=== PATIENT | male | born 1950 | race Caucasian/White ===

== ENCOUNTER → 2016-11-15 | Outpatient (CLI) | payer MEDICARE ==
[~2016-11-15] MED LIST: ALPRAZOLAM0.5 MG PO; ASPIRIN 81MG TA81 MG PO; BISOPROLOL 5MG T5 MG PO; CITALOPRAM10 MG PO; LIPITOR10 MG PO
--- NOTE | 2016-11-15 14:13 | RADIOLOGY REPORT PS360 ---
CHEST(2 VIEWS-NOT PORTABLE) HISTORY: COUGH, WHEEZING ORDERING PHYSICIAN: Basilia Montenegro APRN PATIENT AGE: 66 years COMPARISON: 09/22/2013 FINDINGS: There has been prior median sternotomy. Normal heart size.. No lobar consolidation or collapse. Chronic changes are present in the left lower lobe. The remaining lungs are clear. No effusions evident. Spondylosis thoracic spine. IMPRESSION: Prior median sternotomy with chronic changes in the left lower lobe. No change with no acute finding
--- NOTE | 2016-11-15 16:33 | RADIOLOGY REPORT PS360 ---
PROCEDURE: 2-D M-mode and color Doppler study INDICATIONS FOR THE TEST: Chest pain COPD Heart MurmurX Tobacco Smoking Palpitations Fatigue Syncope Edema HypertensionXDiabetes Mellitus Rheumatic Fever SOB PARK Obesity HyperlipidemiaXX Family History HD Additional History CAD,CABG PATIENT INFORMATION HEIGHT: 64 WEIGHT:185 GENDER: Male B/P:168/79 2-D/M-MODE INTERPRETATION: 2-D MEASUREMENTS OBSERVED VALUES IN CMS Right Ventricular Dimension (RVDd) 2.5 Interventricular Septum (Thickness)(IVsd) .9 Left Ventricular Internal Dimensions(LVIDd) 5.0 Left Ventricular Posterior Wall (Thickness)(LVPWd) 1.1 Aortic Root 2.7 Aortic Cusp Separation 1.0 Left Atrial Dimensions (LAD) 4.0 2D 1. Left atrium is mildly enlarged left ventricle is normal size, there is mild concentric left ventricular hypertrophy present visually estimated to fraction 55% with no obvious regional wall motion abnormality. 2. The right atrium and right ventricle are normal size and contractility. 3. The aortic valve is thickened and calcified with mild restriction in the leaflet mobility. 4. The mitral valve leaflets are minimally thickened, there is no mitral stenosis. 5. The pulmonic valve is not well visualized. 6. No significant pericardial effusion noted. DOPPLER INTERROGATION: 1. The aortic out flow velocity is 2.23 m/s resulting in a mean gradient across aortic valve of 19 mmHg, this represents mild aortic stenosis, there is mild aortic insufficiency also present. 2. The mitral inflow velocity within normal range, there is no mitral stenosis, there is trace mitral regurgitation, grade 1 diastolic dysfunction seen without tissue Doppler evidence of raised left atrial pressure. 3. Mild tricuspid regurgitation, tricuspid and enteric velocity insufficient for calculation of the right ventricular systolic pressure. CONCLUSION: 1. Mildly enlarged left atrium normal left ventricular size, mild concentric left ventricular hypertrophy, visually estimated to fraction 55% with no obvious regional wall motion abnormality. Grade 1 diastolic dysfunction seen without tissue Doppler evidence of raised left atrial pressure. 2. Mild aortic stenosis associated with mild aortic insufficiency. 3. Mild mitral and tricuspid regurgitation. 4. No significant pericardial effusion noted.
== END ==
LOC: RT 13:54 → RAD 13:54 → RT 15:15
DX: I35.0 Nonrheumatic aortic (valve) stenosis (principal); R05 Cough; R06.2 Wheezing